=== PATIENT | male | born 1970 | race Caucasian/White ===

== ENCOUNTER 2022-08-24 12:03 | Emergency (ER) | payer OTHER ==
[~2022-08-24] VITALS: Ht 182.9 cm; Wt 77.1 kg
--- NOTE | 2022-08-24 12:35 | NUR ---
PT IS IN ROOM #2A. DR FLOWER EVALUATED THE PT.
[2022-08-24] MEDS ORDERED: TERBUTALINE SULFATE 1 MG/1 ML VIAL ONE (12:41)
[2022-08-24] MEDS ORDERED: TERBUTALINE SULFATE 1 MG/1 ML VIAL SQ ONE (12:45)
--- NOTE | 2022-08-24 13:32 | NUR ---
PT WAS D/C'D TO HOME. D/C INSTRUCTIONS GIVEN TO THE PT BY DR FLOWER.
[2022-08-24 13:33] VITALS: BP 129/75
== END 2022-08-24 13:34 | disposition home or self-care (01) ==
LOC: ER 12:06
DX: N48.30 Priapism, unspecified (principal); N52.9 Male erectile dysfunction, unspecified
CPT/HCPCS: 99283; 96372; J3105; A4663